=== PATIENT | female | born 1990 | race African-American/Black ===

== ENCOUNTER 2020-09-26 06:23 | Inpatient (IN) | payer OTHER ==
[2020-09-26 07:28] VITALS: BMI 33.6
[2020-09-26] MEDS ORDERED: morphine SULFATE/PF 0.5 MG/ML (2cc Syringe - QUVA) ONE (07:57)
[2020-09-26] MEDS ORDERED: PROPOFOL 20 ML ONE (07:57)
[2020-09-26] MEDS ORDERED: OXYTOCIN 20 UNITS in 0.9% NS 20 UNIT/1,000 ML INFUS.BAG IV ONE ×2 (07:58→11:51)
[2020-09-26] MEDS ORDERED: PHENYLEPHRINE HCL 10 MG/1 ML SINGLE DOSE VIAL ONE ×2 (07:58)
[2020-09-26] MEDS ORDERED: SUCCINYLCHOLINE CHLORIDE 200 MG/10 ML SYRINGE ONE (07:58)
[2020-09-26] MEDS ORDERED: ePHEDrine SULFATE 50 MG/1 ML AMPULE ONE (08:00)
[2020-09-26] MEDS ORDERED: ceFAZolin SODIUM 1 GM VIAL ONE (08:02)
[2020-09-26] MEDS ORDERED: LIDOCAINE HCL/PF 2% SDV 5ML VIAL ONE (08:32)
[2020-09-26] MEDS ORDERED: DEXAMETHASONE SOD PHOSPHATE 4 MG/1 ML VIAL ONE (08:50)
[2020-09-26] MEDS ORDERED: ONDANSETRON 4 MG/2 ML VIAL ONE (08:50)
[2020-09-26] MEDS ORDERED: ROCURONIUM BROMIDE 100 MG/10 ML VIAL ONE (08:53)
[2020-09-26] MEDS ORDERED: OXYTOCIN 10 UNITS/ML VIAL ONE (09:02)
[2020-09-26] MEDS ORDERED: NEOSTIGMINE METHYLSULFATE 0.5 MG/1 ML - 10 ML MDV ONE (09:06)
[2020-09-26] MEDS ORDERED: GLYCOPYRROLATE 0.2 MG/1 ML VIAL ONE ×2 (09:06→09:21)
[2020-09-26] MEDS ORDERED: HYDROmorphone *PCA* 10MG/50ML DISP.SYRIN ONE ×2 (09:24→10:03)
[2020-09-26] MEDS ORDERED: ONDANSETRON 4 MG/2 ML VIAL IVPUSH PRN (09:57)
[2020-09-26] MEDS ORDERED: HYDROmorphone *PCA* 10MG/50ML DISP.SYRIN PCA SCH (10:00)
[2020-09-26] MEDS ORDERED: METHYLERGONOVINE MALEATE 0.2 MG/1 ML AMP IM PRN (10:07)
[2020-09-26] MEDS ORDERED: IBUPROFEN 800 MG/8 ML IJ IVPB PRN (10:07)
[2020-09-26] MEDS ORDERED: ELECTROLYTE-148 SOLN 500 ML IV ONE (10:11)
[2020-09-26] MEDS ORDERED: CITRIC ACID/SODIUM CITRATE 30 ML UNIT-DOSE CUP PO ONE (10:11)
[2020-09-26 11:58] LABS: HIV INTERPRETATION NEGATIVE (NEGATIVE)
[2020-09-27] MEDS: ACETAMINOPHEN 325 MG TABLET (FP) PO PRN ×2 (00:55→06:33)
[2020-09-27] MEDS: oxyCODONE HCL 5 MG TABLET PO PRN ×4 (00:55→17:36)
[2020-09-27] MEDS: SIMETHICONE 80 MG TAB.CHEW (FP) PO PRN ×5 (00:55→22:09)
[2020-09-27] MEDS: IBUPROFEN 600 MG TABLET (FP) PO PRN ×3 (06:32→17:38)
[2020-09-27 08:43] LABS: BASO % 0.4 % (0-2.0); EOS % 0.3 % (0-4.5); HEMATOCRIT 30.7 % (32.4-45.2); HEMOGLOBIN 10.2 GM/dL (10.7-15.3); LYMPH % 13.3 % (8-40); MCH 28.5 pg (25.7-33.7); MCHC 33.2 g/dl (32.0-36.0); MEAN CELL VOLUME 85.8 fl (80-96); MEAN PLT VOLUME 8.4 fl (7.5-11.1); MONO % 8.4 % (3.8-10.2); NEUT % 77.6 % (42.8-82.8); PLATELET COUNT 259 K/MM3 (134-434); RBC 3.58 M/mm3 (3.60-5.2); RDW 15.5 % (11.6-15.6)
[2020-09-27] MEDS ORDERED: DIPHTH,PERTUSS(ACELL),TET 0.5 ML DISP.SYRIN IM ONE (10:00)
[2020-09-27] MEDS ORDERED: BISACODYL 10 MG SUPP.RECT RC PRN (10:07)
[2020-09-27] MEDS: PRENATAL VITAMINS W/ FOLIC ACID TABLET (FP) PO SCH (10:57)
[2020-09-27] MEDS: SENNOSIDES/DOCUSATE COMBO (SENNA PLUS) TABLET (UD) PO PRN (22:09)
[2020-09-28] MEDS: ACETAMINOPHEN 325 MG TABLET (FP) PO PRN ×4 (01:07→20:25)
[2020-09-28] MEDS: IBUPROFEN 600 MG TABLET (FP) PO PRN ×4 (01:07→20:25)
[2020-09-28] MEDS: SIMETHICONE 80 MG TAB.CHEW (FP) PO PRN ×3 (06:23→20:24)
[2020-09-28] MEDS: oxyCODONE HCL 5 MG TABLET PO PRN ×2 (06:24→17:10)
[2020-09-28] MEDS: PRENATAL VITAMINS W/ FOLIC ACID TABLET (FP) PO SCH (09:48)
[2020-09-28] MEDS: SENNOSIDES/DOCUSATE COMBO (SENNA PLUS) TABLET (UD) PO PRN (20:25)
[2020-09-28] MEDS: OXYTOCIN 20 UNITS in 0.9% NS 20 UNIT/1,000 ML INFUS.BAG IV SCH ×2 (21:54→21:55)
[2020-09-28] MEDS: ELECTROLYTE-148 SOLN 1,000 ML IV SCH ×2 (21:54→21:55)
[2020-09-28 22:02] VITALS: TEMP 98
[2020-09-29] MEDS: IBUPROFEN 600 MG TABLET (FP) PO PRN ×2 (00:37→09:12)
[2020-09-29] MEDS: ACETAMINOPHEN 325 MG TABLET (FP) PO PRN ×2 (00:37→09:13)
[2020-09-29] MEDS: oxyCODONE HCL 5 MG TABLET PO PRN (00:38)
[2020-09-29] MEDS: PRENATAL VITAMINS W/ FOLIC ACID TABLET (FP) PO SCH (09:13)
[2020-09-29 11:01] VITALS: BP 110/74; PULSE 108
== END 2020-09-29 13:05 | disposition home or self-care (01) | DRG 788 ==
LOC: JLDR 06:23 → J3W 12:00
PROVIDERS: ADMIT Obstetrics & Gynecology; ATTEND Obstetrics & Gynecology
PROC: 10D00Z1 Extraction of Products of Conception, Low, Open Approach (ICD-10-PCS; principal; 2020-09-26)
DX: O34.211 Maternal care for low transverse scar from previous cesarean delivery (principal); Z3A.39 39 weeks gestation of pregnancy; Z37.0 Single live birth
CPT/HCPCS: 36415; 85025; 86850; 86900; 86901; 87389; 88307-TC; 90715; 94010